=== PATIENT | female | born 1945 | race Caucasian/White ===

== ENCOUNTER 2016-11-04 15:15 | Emergency (ER) | payer OTHER ==
--- NOTE | ~2016-11-04 | US140 ---
[facility] A Service of [facility] RADIOLOGY TEXT RESULTS PATIENT: PREMA ARREDONDO LOCATION: [facility] : 45 UNIT #: [id number] AGE: [address]: Rory Beltran MD SEX: F ORDER DR: [id number] [facility] [address] [place], [place] [address] [id number] MR#: [id number] #: [id number] NAME: PREMA ARREDONDO : 1945 SEX: F STUDY DATE/TIME: 11/04/2016 14:18 UNIT: [facility] ROOM: STUDY DESCRIPTION: U Veins Unilat or Ltd Stdy Attending Physician: Rory Beltran M.D. Ordering Physician: Rory Beltran M.D. Primary Care Physician: No Primary Care Physician MEDICAL IMAGING REPORT This report is preliminary unless electronic signature is present EXAM Right upper extremity venous Doppler 11/04/2016 HISTORY Pain. Inability to move right upper extremity times 12 hours. Patient on blood thinners. FINDINGS 2-D and Doppler evaluation of the right upper extremity demonstrates normal flow and compressibility of the major veins of the right upper extremity. No intraluminal thrombus identified. Normal respiratory variation. The visualized superficial veins appear patent. IMPRESSION No sonographic evidence of DVT right upper extremity. Dictated by... Adi Alex M.D. THIS IS AN ELECTRONICALLY VERIFIED REPORT Adi Alex M.D. at 11/05/2016 8:42 PM Guido TD: 11/04/2016 18:19 JOB #: [id number] MEDICAL IMAGING REPORT COPY
[2016-11-04 14:58] LABS: BASOPHIL# 0.1 X10e3 (0-0.3); BASOPHIL% 0.7 % (0-2.5); EOSINOPHIL% 0.4 % (0.0-7.0); HEMATOCRIT 46.2 % (35.0-45.0); LYMPHOCYTE# 2.2 X10e3 (1.0-3.5); LYMPHOCYTE% 19.4 % (17.0-45.0); MEAN CELL VOLUME 88.7 FL (83-96); MEAN CORPUSCULAR HEMOGLOBIN 28.8 PG (28-34); MEAN CORPUSCULAR HGB CONC 32.5 g/dL (30-36); MEAN PLATELET VOLUME 7.9 FL (6.5-11.5); MONOCYTE# 0.8 X10e3 (0-1.0); MONOCYTE% 7.3 % (3.0-12.0); NEUTROPHIL# 8.3 X10e3 (1.5-7.1); NEUTROPHIL% 72.2 % (40-75); PLATELET COUNT 184 X10e3 (140-420); RED BLOOD COUNT 5.21 X10e (3.90-5.30); RED CELL DISTRIBUTION WIDTH 14.8 % (11.0-15.5); WHITE BLOOD COUNT 11.6 X10e3 (4.0-10.5)
[2016-11-04 14:59] LABS: DIFF IND NO
[~2016-11-04 15:15] MED LIST: ADULT WAL-100 MG/5 M PO; ADVAIR 2501 DISK W/1 IH; ALBUTEROL17 GM INH; AMITIZA24 MCG PO; AMLODIPINE BESYL5 MG PO; ATORVASTATIN CA10 MG PO; AZITHROMYCIN250 MG PO; BENZONATATE PO; BETAPACE80 MG PO; CARDIZEM CD PO; CARDIZEM SR PO; DIAZEPAM PO; DIAZEPAM10 MG PO; DILAUDID2 MG PO; DILTIAZEM 24HR300 M1 PO; DILTIAZEM 24HR300 M2 PO; DOXYCYCLINE HY100 M1 PO; DURAGESIC75 MCG TOP; FLEXERIL PO; FLONASE16 GM; GABAPENTIN400 MG PO; GABAPENTIN800 MG PO; HCTZ PO; HYDROCHLOROTHIA25 MG PO; K-DUR20 ME1 PO; KLONOPIN PO; LEVAQUIN750 M1 PO; LEVAQUIN750 MG PO; LIPITOR PO; LIPITOR20 MG PO; LISINOPRIL PO; LISINOPRIL10 MG PO; LISINOPRIL20 MG PO; LORTAB 7.51 TAB PO; MAGNESIUM400 MG PO; MIRALAX255 GM PO; NEURONTIN PO; NEURONTIN800 MG PO; NEXIUM PO; NITROGYLCERIN SUBLINGUAL; NITROSTAT0.4 MG SL; NORVASC PO; OXYCODONE HCL15 MG PO; OXYCONTIN PO; PAMELOR50 MG PO; PERCOCET 5-3251 TAB PO; PERCOCET PO; PERCOCET5/325 PO; PHARMACY; PLAVIX PO; POTASSIUM99 M2 PO; PRADAXA150 MG PO; PREDNISONE PO; PREDNISONE10 MG PO; PRINIVIL40 MG PO; PROVENTIL0.83 MG/ML IH; REGLAN PO; TOPROL XL PO; VALIUM2 MG PO; VICODIN 5/500 T1 TAB PO; VITAMIN D32000 UNIT PO; XANAX0.5 MG PO; ZANTAC PO
[2016-11-04 15:22] LABS: CALCIUM SERUM 9.4 mg/dL (8.4-10.2); GLOM FILT RATE Estimated 58.3 mL/min (>60)
== END 2016-11-04 15:57 | disposition home or self-care (01) ==
LOC: CED 15:15
PROVIDERS: Emergency Medicine
DX: M79.601 Pain in right arm (principal); G89.29 Other chronic pain; M79.7 Fibromyalgia; J44.9 Chronic obstructive pulmonary disease, unspecified; I10 Essential (primary) hypertension; I48.91 Unspecified atrial fibrillation; F17.210 Nicotine dependence, cigarettes, uncomplicated; Z79.899 Other long term (current) drug therapy; Z88.8 Allergy status to other drugs, medicaments and biological substances
CPT/HCPCS: 36415; 80048; 82550; 85025; 93971; 99284

== ENCOUNTER 2016-11-12 19:36 | Inpatient (IN) | payer OTHER ==
--- NOTE | ~2016-11-12 | HP ---
Unit #: [id number] #: [id number] Patient: PREMA ARREDONDO [id number] [facility]. [place] [id number] [facility]. [place], [place] [address] [id number] I MR#: [id number] NAME: PREMA ARREDONDO. ROOM: [facility] Age: 70 Sex: F Admission Date: 11/12/2016 : 1945 Attending Physician: Dianna Parra M.D. Referring Physician: No Primary Care Physician Primary Care Physician: No Primary Care Physician HISTORY AND PHYSICAL CHIEF COMPLAINT Bradycardia. This is a 70-year-old white female that has seen Dr. Butts in the past, last in May 2016. She was sent over to [place] from her primary care office yesterday with bradycardia on EKG. In the ER, was noted to have junctional bradycardia, left axis deviation, rate of 38 beats per minute. She had nonspecific interventricular conduction delay and some nonspecific T wave abnormality. On comparison to an old EKG stated in May 2016, that EKG showed sinus bradycardia with a rate of 43 beats per minute, also with left axis deviation, low voltage QRS. She was seen for similar symptoms of dizziness, presyncope and bradycardia in May. She was deemed to have sick sinus syndrome. She was not worked up for a pacemaker at that time. She has a past medical history of bradycardia, paroxysmal A-fib, managed on Pradaxa at home, diastolic CHF, coronary artery disease status post PCI and stent to the mid RCA in 2001. On repeat cardiac cath in 2014, she had nonobstructive disease, 50% stenosis to the LAD and her RCA stent was patent. History of a left carotid bruit and history of tobacco use. She also has a history of some drug dependence for chronic pain syndrome. She has used marijuana in the past. She takes valium three times a day, OxyContin. She is on a fentanyl patch. Tonsillectomy. On arrival to the ER, heart rate was in the 30s. When she presented it was 37. Blood pressure at presentation was 110/61 and then dropped to 90/55. PAST MEDICAL HISTORY 1. Hypertension. 2. Paroxysmal A-fib, managed on Pradaxa for anticoagulation and beta pedro for rate control. 3. Chronic obstructive pulmonary disease. 4. Significant drug dependence for fibromyalgia and chronic pain syndrome. 5. Coronary artery disease with cardiac catheterization in 2014. She had normal LV function. Coronary stents to the mid RCA were widely patent and no significant stenosis. However, she did have a 30% distal stenosis to the left main and mild LAD stenosis of 50%. Medical therapy was recommended at that time. 6. Hyperlipidemia. 7. Obstructive sleep apnea. 8. Anxiety. 9. Fibromyalgia. 10. Tobacco abuse. Unit #: [id number] #: [id number] Patient: PREMA ARREDONDO It was felt in the past that her bradycardia was related to the sedative effects of her pain medications in which she takes a lot of and, as her pain medications were off, her heart rate did improve. Her pain medications at the time were stopped. However, she is currently still on them. SURGICAL HISTORY Includes: 1. Appendectomy. 2. Breast augmentation. 3. . 4. Neck surgery. 5. Coronary angioplasty with sent insertion in 2001. 6. Tonsillectomy. SOCIAL HISTORY She lives with her boyfriend. She continues to smoke about a half pack of cigarettes a day. History of some marijuana abuse. She is a poor historian due to her lethargic state. FAMILY HISTORY Positive for coronary artery disease. Mother with CVA, high cholesterol, hypertension. Father had high cholesterol, COPD. Sister with diabetes. ALLERGIES Stadol. HOME MEDICATIONS 1. Pradaxa 150 b.i.d. Last dose appears to be 3:23 a.m. 2. Atorvastatin 10 mg daily. 3. Diltiazem CD 300 mg daily. 4. Gabapentin 800 mg four times a day. 5. Ventolin and albuterol two puffs inhaled p.r.n. 6. Fentanyl patch 75 mcg topical every 72 hours. 7. Hydrochlorothiazide 25 mg daily. 8. Prinivil 40 mg daily. 9. Betapace 80 mg b.i.d. 10. Oxycodone 15 mg every four hours as needed for pain which she takes scheduled. 11. Omeprazole 20 mg daily. 12. Amlodipine 5 mg daily. 13. Plavix 75 mg daily. 14. Valium 5 mg twice a day. 15. Nexium 40 mg daily. REVIEW OF SYSTEMS Review of systems is noted above. Performed but I was unable to obtain much from talking with the patient as she is very lethargic. She was difficult to arouse. She was only oriented to herself and to where she was. That was after significant prompting. She cannot tell me the year. She kept asking for Dr. Butts. Several attempts were made to reorient her. PHYSICAL EXAM VITAL SIGNS: 98.5, heart rate of 55. Actually, on exam her heart rate was in the 70s. Respirations were only 10. Blood pressure 149/65. She is currently on a dopamine drip at 7.5 mcg/kg/minute. Her kilograms are 82 and BMI is 32. Unit #: [id number] #: [id number] Patient: PREMA ARREDONDO GENERAL: She is seen in ICU. She was laying in bed. She had complaints that she had used the bathroom. She was very difficult to arouse. She would fall asleep in mid interview. HEENT: Head is normocephalic, atraumatic. Pupils were equal, round, reactive to light. Extraocular movements were not assessed due to her lethargic state. I could not get her to follow commands. LUNGS: Showed coarse rhonchi and crackles in the bases. CARDIOVASCULAR: She had regular rhythm with regular rate, maintained on dopamine. S1, S2 noted. ABDOMEN: Soft and obese with positive bowel sounds. EXTREMITIES: No edema. Very weak pulses. NEUROLOGICAL: She was oriented to the fact that she was at [facility] and to her person. She could not tell me what year it was. She could not really tell me the condition of what led her to the hospital. However, she did tell me that she has seen Dr. Butts in the past for her cardiovascular needs. She was agreeable to a pacemaker. She did state that she has dizziness and has had that before. She asked if she could from a low heart rate so I think that she is generally oriented to her situation. DIAGNOSTIC STUDIES IMAGING: Chest x-ray on 11/12 which showed bilateral hyperinflated lungs. CARDIOVASCULAR: An EKG on 11/13 - normal sinus rhythm. This was while she was on dopamine. Her vent rate was 60 beats per minute. She has possible left atrial enlargement, left axis deviation also noted. LABORATORY: Sodium 138, potassium 4, chloride 99, CO2 28, BUN 30, creatinine 1.1, glucose 167. GFR is reduced to 50.8, INR is 1.6. TSH 0.82. WBC 10.9, platelets 237, hemoglobin 13.8, hematocrit 43.2. Troponin is less than 0.05 x2. IMPRESSION 1. Symptomatic sinus bradycardia with a junctional rhythm, heart rate in the 30s. 2. Dizziness, near syncope secondary to junctional rhythm. 3. History of chronic pain syndrome with multiple drug dependence. 4. History of coronary artery disease, status post PCI and stent with patent stent to the mid RCA. 5. Tobacco abuse. PLAN We will DC all her meds and hold Pradaxa. Her last dose of Pradaxa was noted at 3:23 a.m. She needs a permanent pacemaker for her severe symptomatic bradycardia/sick sinus syndrome. We will transfer to [facility]. Dr. Parra has discussed with Dr. Mendoza. I DC'd her valium. We will check a 2D echo prior to her transfer but her on her last cath in 2014 her LV function was normal. She needs to be kept NPO. She is stable on 7.5 mcg of dopamine. We will agree that will continue. Dictated by Reny Baer APRN for [facility] Unit #: [id number] #: [id number] Patient: PREMA ARREDONDO TD: 11/13/2016 10:35 JOB #: [id number] HISTORY AND PHYSICAL Page 1 of 1 X X HISTORY AND PHYSICAL
--- NOTE | ~2016-11-12 | CR72 ---
[facility] A Service of [facility] RADIOLOGY TEXT RESULTS PATIENT: PREMA ARREDONDO LOCATION: [facility] CICCU3-15 : [birth year] UNIT #: [id number] AGE: [address]: Dianna Parra MD SEX: F ORDER DR: [id number] [facility] [address] [place], [place] [address] [id number] I MR#: [id number] #: [id number] NAME: PREMA ARREDONDO. : 1945 SEX: F STUDY DATE/TIME: 11/12/2016 18:53 UNIT: [facility] ROOM: [id number] STUDY DESCRIPTION: CR Chest Single View Portable Attending Physician: Dianna Parra M.D. Referring Physician: Primary Care Physician No Ordering Physician: Rory Beltran M.D. Primary Care Physician: Primary Care Physician No MEDICAL IMAGING REPORT This report is preliminary unless electronic signature is present EXAM AP radiograph chest, 11/12/2016 HISTORY Short of air. Low heart rate. 2 weeks duration. FINDINGS AP radiograph of the chest presented. Comparison 05/30/[address] examination 05/31/2016. Cervical spine fixation hardware grossly unremarkable in frontal projection. Prior bilateral augmentation mammoplasty. Stable cardiac enlargement. Lungs hyperinflated consistent with underlying emphysema seen on prior CT examination. Coarse linear markings in the [id number] lung zones bilaterally, stable to less pronounced than on prior examination and probably reflecting chronic interstitial change. There is no dense airspace disease, pleural effusion or pneumothorax. Pulmonary vasculature appears unremarkable. Please note the prior CT examination in May 2016 noted multiple bilateral noncalcified pulmonary nodules, the largest in the right middle lobe measuring about 1 cm. These nodules are not seen on today's plain radiograph. Please see prior CT examination for discussion of recommended nodule followup protocol. There is no intervening cross-sectional imaging of the chest at this institution since May 2016. Dictated by... Max Miller M.D. THIS IS AN ELECTRONICALLY VERIFIED REPORT Max Miller M.D. at 11/13/2016 8:05 PM DARIO/derek [facility]. [facility] A Service of [facility] & [facility] RADIOLOGY TEXT RESULTS PATIENT: PREMA ARREDONDO LOCATION: [facility] CICCU3-15 : [birth year] UNIT #: [id number] AGE: [address]: Dianna Parra MD SEX: F ORDER DR: TD: 11/12/2016 22:59 JOB #: [id number] MEDICAL IMAGING REPORT Page 1 of 1 COPY
--- NOTE | ~2016-11-12 | EKG ---
PATIENT: PREMA ARREDONDO UNIT #: [id number] Ventricular Rate: 38 BPM Atrial Rate: 23 BPM QRS Duration: 118 ms Q-T Interval: 476 ms QTC Calculation(Bezet): 378 ms Calculated R [place]: -39 degrees Calculated T [place]: -14 degrees Diagnosis Line: Junctional bradycardia Diagnosis Line: Left axis deviation Diagnosis Line: Non-specific intra-ventricular conduction delay Diagnosis Line: T wave abnormality, consider anterior ischemia Diagnosis Line: Abnormal ECG Diagnosis Line: When compared with ECG of 30-MAY-2016 14:30, Diagnosis Line: Junctional rhythm has replaced Sinus rhythm Diagnosis Line: Non-specific change in ST segment in Anterior Diagnosis Line: leads Diagnosis Line: Nonspecific T wave abnormality, worse in Diagnosis Line: Anterolateral leads Diagnosis Line: Confirmed by JOE FERGUSON MD ([id number]) on 11/16/2016 Diagnosis Line: 10:40:27 PM INTERPRETING MD: PHYLLIS MARIE
--- NOTE | ~2016-11-12 | EKG ---
PATIENT: PREMA ARREDONDO UNIT #: [id number] Ventricular Rate: 60 BPM Atrial Rate: 60 BPM P-R Interval: 148 ms QRS Duration: 88 ms Q-T Interval: 418 ms QTC Calculation(Bezet): 418 ms P [place]: 44 degrees Calculated R [place]: -44 degrees Calculated T [place]: 24 degrees Diagnosis Line: Normal sinus rhythm Diagnosis Line: Possible Left atrial enlargement Diagnosis Line: Left axis deviation Diagnosis Line: Nonspecific ST and T wave abnormality Diagnosis Line: Abnormal ECG Diagnosis Line: When compared with ECG of 12-NOV-2016 18:21, Diagnosis Line: (unconfirmed) Diagnosis Line: Significant changes have occurred Diagnosis Line: Confirmed by MARIA DEL CARMEN ASHBY MD ([id number]) on 11/15/2016 Diagnosis Line: 7:17:20 AM INTERPRETING MD: SYMONE MARIE
[2016-11-12 19:10] LABS: POC - CKMB <1.0 ng/mL (0.0-7.9); POC - TROPONIN <0.05 ng/mL (<=0.05)
[2016-11-12 19:18] LABS: BASOPHIL# 0.1 X10e3 (0-0.3); BASOPHIL% 0.7 % (0-2.5); EOSINOPHIL% 0.4 % (0.0-7.0); HEMATOCRIT 43.2 % (35.0-45.0); HEMOGLOBIN 13.8 gm/dL (12.0-16.0); LYMPHOCYTE# 3.4 X10e3 (1.0-3.5); LYMPHOCYTE% 31.1 % (17.0-45.0); MEAN CELL VOLUME 90.6 FL (83-96); MEAN PLATELET VOLUME 8.6 FL (6.5-11.5); MONOCYTE# 0.8 X10e3 (0-1.0); MONOCYTE% 7.7 % (3.0-12.0); NEUTROPHIL# 6.6 X10e3 (1.5-7.1); NEUTROPHIL% 60.1 % (40-75); PLATELET COUNT 237 X10e3 (140-420); RED BLOOD COUNT 4.76 X10e (3.90-5.30); RED CELL DISTRIBUTION WIDTH 15.3 % (11.0-15.5); WHITE BLOOD COUNT 10.9 X10e3 (4.0-10.5)
[2016-11-12 19:21] LABS: DIFF IND NO
[2016-11-12 19:34] LABS: INR 1.6; PARTIAL THROMBOPLASTIN TIME 53.7 SECONDS (23.5-31.3); PROTHROMBIN TIME (PATIENT) 17.5 SECONDS (9.6-11.5)
[2016-11-12 19:39] LABS: ALBUMIN SERUM 3.5 g/dL (3.5-5.0); BILIRUBIN, DIRECT 0.1 mg/dL (0.0-0.2); BILIRUBIN,INDIRECT 0.4 mg/dL (0.0-0.9); BILIRUBIN,TOTAL 0.5 mg/dL (0.2-2.0); BUN/CREATININE RATIO 27.27; CALCIUM SERUM 8.7 mg/dL (8.4-10.2); CREATININE SERUM 1.1 mg/dL (0.6-1.4); GLOM FILT RATE Estimated 50.8 mL/min (>60); PROTEIN TOTAL SERUM 6.4 g/dL (6.0-8.3)
[2016-11-12 20:04] LABS: THYROID STIMULATING HORMONE 0.82 uIU/ml (0.34-5.60)
[2016-11-12 20:11] LABS: FREE THYROXIN (T4) 0.99 ng/dL (0.58-1.64)
[2016-11-12 21:07] LABS: POC - CKMB <1.0 ng/mL (0.0-7.9); POC - TROPONIN <0.05 ng/mL (<=0.05)
[2016-11-13] MEDS ORDERED: AMLODIPINE BESYL5 MG PO (00:44)
[2016-11-13] MEDS ORDERED: OMEPRAZOLE20 M2 PO (00:44)
[2016-11-13] MEDS ORDERED: CLOPIDOGREL BIS75 MG PO (00:44)
[2016-11-13] MEDS ORDERED: NEXIUM PO (00:45)
[2016-11-13] MEDS ORDERED: DIAZEPAM PO (00:45)
[2016-11-13 11:48] LABS: BASOPHIL# 0.1 X10e3 (0-0.3); BASOPHIL% 0.4 % (0-2.5); EOSINOPHIL# 0.1 X10e3 (0-0.7); EOSINOPHIL% 0.7 % (0.0-7.0); HEMATOCRIT 45.5 % (35.0-45.0); HEMOGLOBIN 14.5 gm/dL (12.0-16.0); LYMPHOCYTE% 17.2 % (17.0-45.0); MEAN CELL VOLUME 90.4 FL (83-96); MEAN CORPUSCULAR HEMOGLOBIN 28.8 PG (28-34); MEAN CORPUSCULAR HGB CONC 31.8 g/dL (30-36); MEAN PLATELET VOLUME 7.9 FL (6.5-11.5); MONOCYTE# 0.9 X10e3 (0-1.0); MONOCYTE% 7.3 % (3.0-12.0); NEUTROPHIL# 8.9 X10e3 (1.5-7.1); NEUTROPHIL% 74.4 % (40-75); PLATELET COUNT 225 X10e3 (140-420); RED BLOOD COUNT 5.04 X10e (3.90-5.30); RED CELL DISTRIBUTION WIDTH 14.9 % (11.0-15.5); WHITE BLOOD COUNT 11.9 X10e3 (4.0-10.5)
[2016-11-13 11:53] LABS: DIFF IND NO
[2016-11-13 12:01] LABS: INR 1.3; PROTHROMBIN TIME (PATIENT) 13.3 SECONDS (9.6-11.5)
[2016-11-13 12:06] LABS: BUN/CREATININE RATIO 22.22; CALCIUM SERUM 9.1 mg/dL (8.4-10.2); CREATININE SERUM 0.9 mg/dL (0.6-1.4); GLOM FILT RATE Estimated 64.8 mL/min (>60); POTASSIUM 3.3 mmol/L (3.5-5.1)
== END 2016-11-13 13:30 | disposition short-term general hospital (02) | DRG 309 ==
LOC: CED 19:36 → CEDOF 20:58 → CICCU3 11-13 01:12
PROVIDERS: Emergency Medicine; Internal Medicine Cardiovascular Disease
PROC: B24BZZZ Ultrasonography of Heart with Aorta (ICD-10-PCS; principal; 2016-11-13)
DX: R00.1 Bradycardia, unspecified (principal); I50.30 Unspecified diastolic (congestive) heart failure; I11.0 Hypertensive heart disease with heart failure; I48.0 Paroxysmal atrial fibrillation; Z79.01 Long term (current) use of anticoagulants; F17.210 Nicotine dependence, cigarettes, uncomplicated; M79.7 Fibromyalgia; G89.4 Chronic pain syndrome; I25.10 Atherosclerotic heart disease of native coronary artery without angina pectoris; Z95.5 Presence of coronary angioplasty implant and graft; G47.33 Obstructive sleep apnea (adult) (pediatric); E78.5 Hyperlipidemia, unspecified; F41.9 Anxiety disorder, unspecified; R55 Syncope and collapse; R42 Dizziness and giddiness; Z86.73 Personal history of transient ischemic attack (TIA), and cerebral infarction without residual deficits; Z90.710 Acquired absence of both cervix and uterus; Z82.49 Family history of ischemic heart disease and other diseases of the circulatory system
CPT/HCPCS: 36415; 71010; 80048; 80076; 82553; 83735; 84439; 84443; 84484; 85025; 85610; 85730; 93005; 93306; 94640; 96374; 99291; J1265; J2405